=== PATIENT | male | born 1965 | race Caucasian/White ===

== ENCOUNTER → 2017-07-10 | Outpatient (CLI) | payer OTHER ==
[~2017-07-10] MED LIST: ASPIR 8181 MG PO; ASPIRIN325; BACTRIM DS TAB1 EACH PO; CLEOCIN HCL150 MG PO; GLUCOPHAGE500 MG PO; IBUPROFEN 800800 M1 PO; IBUPROFEN 800800 MG PO; KEFLEX500 MG PO; LISINOPRIL10 MG PO; NORCO 5-325 TA1 EACH PO; VITAMINC500 PO
[2017-07-10 12:23] LABS: CREATININE 0.8 mg/dL (0.7-1.3)
== END ==
LOC: CAT 11:52
PROVIDERS: Internal Medicine
DX: R91.8 Other nonspecific abnormal finding of lung field (principal); J98.4 Other disorders of lung

== ENCOUNTER → 2018-02-01 | Outpatient (CLI) | payer OTHER | LOC: CAT 09:18 | DX: R91.1 Solitary pulmonary nodule (principal); R06.00 Dyspnea, unspecified; C61 Malignant neoplasm of prostate ==

== ENCOUNTER → 2018-02-25 | Outpatient (CLI) | payer OTHER | LOC: CAT 09:52 | DX: J84.10 Pulmonary fibrosis, unspecified (principal); R91.1 Solitary pulmonary nodule; N62 Hypertrophy of breast; C61 Malignant neoplasm of prostate ==

== ENCOUNTER → 2018-08-10 | Outpatient (CLI) | payer OTHER | LOC: CAT 09:06 | DX: J98.4 Other disorders of lung (principal); K76.0 Fatty (change of) liver, not elsewhere classified; R91.1 Solitary pulmonary nodule ==

== ENCOUNTER → 2019-08-08 | Outpatient (CLI) | payer OTHER | LOC: CAT 09:04 | PROVIDERS: ATTEND Internal Medicine Pulmonary Disease | DX: R91.8 Other nonspecific abnormal finding of lung field (principal) ==

== ENCOUNTER → 2020-01-23 | Outpatient (CLI) | payer OTHER ==
[2020-01-23 10:55] LABS: ABSOLUTE NEUTROPHILS 4.5 thou/uL (1.4-8.2); BASOPHILS 0.3 % (0.0-2.0); EOSINOPHILS 3.8 % (0.0-3.0); HEMATOCRIT 50.8 % (42.0-52.0); HEMOGLOBIN 17.6 gm/dL (14.0-18.0); LYMPHOCYTES 21.5 % (24.0-44.0); MCH 30.4 pg (26.0-34.0); MCHC 34.7 g/dL (28.0-37.0); MCV 87.7 fL (80.0-100.0); MONOCYTES 8.1 % (1.0-8.0); POLYS 66.3 % (36.0-66.0); RBC 5.79 mil/uL (4.50-6.00); RDW 14.5 % (10.5-14.5); WBC 6.7 thou/uL (4.0-11.0)
[2020-01-23 11:11] LABS: URINE BILIRUBIN NEGATIVE (Negative); URINE BLOOD NEGATIVE (Negative); URINE CLARITY CLEAR; URINE COLOR YELLOW; URINE GLUCOSE-RANDOM* 3+ (Negative); URINE KETONES NEGATIVE (Negative); URINE LEUKOCYTES-REFLEX NEGATIVE (Negative); URINE NITRITE-REFLEX NEGATIVE (Negative); URINE PROTEIN (DIPSTICK) NEGATIVE (Negative); URINE SPECIFIC GRAVITY 1.025 (1.005-1.035); URINE UROBILINOGEN 0.2 E.U./dl (0.2-1.0)
[2020-01-23 11:35] LABS: ALBUMIN 4.4 g/dL (3.4-5.0); ANION GAP 10 mmol/L (7-16); BUN 23 mg/dL (7-18); CALCIUM 8.8 mg/dL (8.5-10.1); CHLORIDE 103 mmol/L (98-107); CHOLESTEROL 106 mg/dL (<200); CO2 24 mmol/L (21-32); CREATININE 0.9 mg/dL (0.7-1.3); GLUCOSE 144 mg/dL (74-106); POTASSIUM 4.3 mmol/L (3.5-5.1); SGOT 19 U/L (15-37); SGPT 42 U/L (30-65); SODIUM 137 mmol/L (136-145); TOTAL BILIRUBIN 1.7 mg/dL (0.2-1.0); TOTAL PROTEIN 7.3 g/dL (6.4-8.2)
[2020-01-23 11:48] LABS: HDL CHOLESTEROL 33 mg/dL (>40); LDL CHOLESTEROL 20 mg/dL (<100); TC:HDL 3.2 Ratio (Not establshd); TRIGLYCERIDE 266 mg/dL (<150); VLDL 53 mg/dL (<40)
[2020-01-23 12:22] LABS: PLATELET COUNT 134 thou/uL (150-400)
== END ==
LOC: LAB 09:24
PROVIDERS: ATTEND Nurse Practitioner
DX: E11.9 Type 2 diabetes mellitus without complications (principal)

== ENCOUNTER → 2020-03-26 | Outpatient (CLI) | payer OTHER | LOC: LAB 12:25 | PROVIDERS: ATTEND Nurse Practitioner | DX: J02.9 Acute pharyngitis, unspecified (principal); R50.9 Fever, unspecified; R05 Cough; Z20.822 Contact with and (suspected) exposure to COVID-19 ==

== ENCOUNTER → 2020-07-31 | Outpatient (CLI) | payer OTHER ==
[2020-07-31 12:13] LABS: URINE BILIRUBIN NEGATIVE (Negative); URINE BLOOD NEGATIVE (Negative); URINE CLARITY CLEAR; URINE COLOR YELLOW; URINE GLUCOSE-RANDOM* 3+ (Negative); URINE KETONES NEGATIVE (Negative); URINE LEUKOCYTES NEGATIVE (Negative); URINE NITRITE NEGATIVE (Negative); URINE PROTEIN (DIPSTICK) NEGATIVE (Negative); URINE SPECIFIC GRAVITY 1.025 (1.005-1.035); URINE UROBILINOGEN 0.2 E.U./dl (0.2-1.0)
[2020-07-31 12:21] LABS: PLATELET COUNT 133 thou/uL (150-400); WBC 5.6 thou/uL (4.0-11.0)
[2020-07-31 12:23] LABS: HEMATOCRIT 50.5 % (42.0-52.0); HEMOGLOBIN 18.2 gm/dL (14.0-18.0); MCH 30.9 pg (26.0-34.0); MCV 85.7 fL (80.0-100.0); RBC 5.89 mil/uL (4.50-6.00)
[2020-07-31 13:04] LABS: ALBUMIN 4.4 g/dL (3.4-5.0); ANION GAP 12 mmol/L (7-16); BUN 18 mg/dL (7-18); CALCIUM 9.1 mg/dL (8.5-10.1); CHLORIDE 103 mmol/L (98-107); CHOLESTEROL 136 mg/dL (<200); CO2 24 mmol/L (21-32); CREATININE 0.8 mg/dL (0.7-1.3); GLUCOSE 241 mg/dL (74-106); HDL CHOLESTEROL 33 mg/dL (>40); LDL CHOLESTEROL 54 mg/dL (<100); POTASSIUM 4.3 mmol/L (3.5-5.1); SGOT 22 U/L (15-37); SGPT 54 U/L (30-65); SODIUM 139 mmol/L (136-145); TC:HDL 4.1 Ratio (Not establshd); TOTAL BILIRUBIN 1.2 mg/dL (0.2-1.0); TOTAL PROTEIN 7.1 g/dL (6.4-8.2); TRIGLYCERIDE 247 mg/dL (<150); VLDL 49 mg/dL (<40)
[2020-07-31 13:17] LABS: ABSOLUTE NEUTROPHILS 3.7 thou/uL (1.4-8.2)
[2020-08-01 02:06] LABS: GLYCOHEMOGLOBIN (HGB A1C) 8.8 % (4.8-5.6)
== END ==
LOC: LAB 10:43
PROVIDERS: ATTEND Nurse Practitioner
DX: E11.9 Type 2 diabetes mellitus without complications (principal)

== ENCOUNTER → 2020-09-21 | Outpatient (CLI) | payer OTHER ==
[~2020-09-21] VITALS: Ht 170.2 cm; Wt 83.9 kg
[~2020-09-21] MED LIST changes: -ASPIR 8181 MG PO; +CHILDREN'S ASPI81 M1 PO; +FARXIGA10 MG PO; +GLUCOPHAGE XR750 MG PO; +LISINOPRIL5 MG PO; +ROSUVASTATIN CA20 MG PO; +TRULICITY1.5 MG/0.5 SUBQ
--- NOTE | ~2020-09-21 | P ---
[facility] [place] [address] PROCEDURE REPORT Name: DIONNE ACOSTA Room #: REG Stacy GonzalezRicky#: [id number] Admission: 09/21/20 Attend Phys: Julian Freitas Discharge: Date of : 61 Report #: [id number] THIS REPORT FOR: cc: Brandon Wylie James A. DO McElhinney, Christian C. MD ~ cc: Brandon Wylie DO DATE OF SERVICE: 09/21/2020 PROCEDURE PERFORMED: Colonoscopy with biopsies. HISTORY OF PRESENT ILLNESS: The patient is a 54-year-old male, who underwent an upper endoscopy by myself just now for excessive belching hiccups. Plan is for screening colonoscopy. Last colonoscopy 10 years ago. No family history of colon cancer. DESCRIPTION OF PROCEDURE: The risks and benefits of the procedure were explained to the patient, those risks including but not limited to bleeding, perforation, and the risk of sedation. He understood these risks and gave me informed consent. Sedation was given using propofol per anesthesia. Next, a digital rectal exam was initially performed, which was normal. Next, using a standard Olympus colonoscope, the scope was placed in the patient's anus and advanced under direct vision to the cecum. The overall prep was good. The cecum and ileocecal valve were normal in appearance. In the ascending colon, a 5 mm sessile polyp was noted. This was removed with cold forceps. Multiple diverticula were noted in the ascending colon as well. In the transverse colon, diverticulosis also noted as well as a 4 mm sessile polyp, also removed with cold forceps. Diverticulosis noted in the descending and sigmoid colon, otherwise normal. The rectal mucosa was normal. On retroflexion, no abnormalities were noted. The scope was then withdrawn and the procedure terminated. The patient tolerated the procedure well. IMPRESSION: 1. Pandiverticulosis. 2. Two small colonic polyps. 3. Otherwise, normal colonoscopy. RECOMMENDATIONS: 1. Await biopsy results. 2. If polyps are hyperplastic, repeat in 10 years; if adenomatous polyp, repeat in [address] [address] PROCEDURE REPORT Name: DIONNE ACOTSA Room #: REG Stacy Bowser#: [id number] Admission: 09/21/20 Attend Phys: Julian Freitas Discharge: Date of : 61 Report #: [id number] Thank you for allowing me to participate in his care. By: 1211 49 Julian Ellington MD /nt
--- NOTE | ~2020-09-21 | P ---
[facility] [place] [address] PROCEDURE REPORT Name: DIONNE ACOSTA Room #: REG AMANStacy Bowser#: [id number] Admission: 09/21/20 Attend Phys: Julian Freitas Discharge: Date of : 61 Report #: [id number] THIS REPORT FOR: cc: Brandon Wylie James A. DO McElhinney, Christian C. MD ~ cc: Brandon Wylie DO DATE OF SERVICE: 09/21/2020 PROCEDURE PERFORMED: Upper endoscopy with biopsies. HISTORY OF PRESENT ILLNESS: The patient is a 54-year-old male who was seen by myself in the office on 09/13/2020. He complains of excessive belching and hiccups, became worse in April of this year. No previous history of upper endoscopy. Last colonoscopy was 10 years ago. The patient denies any nausea, vomiting or dysphagia. He does report early satiety. Primary physician recently started the patient on Reglan, which has been mildly helpful. He does report mild heartburn at times. We started him on Prilosec at the time of the office visit. He now reports some mild improvement in his symptoms as well. Plan is for EGD and colonoscopy today. DESCRIPTION OF PROCEDURE: The risks and benefits of the procedure were explained to the patient, those risks including but not limited to bleeding, perforation and the risk of sedation. He understood these risks and gave informed consent. Sedation was given using propofol per anesthesia. Next, using a standard Olympus upper endoscope, the scope was placed in the patient's mouth and advanced under direct vision through the esophagus, stomach and into the second portion of the duodenum. The larynx was normal in appearance. The upper and mid esophagus was normal. In the distal esophagus, a possible short segment of Wu's esophagus was noted. Biopsies obtained. No evidence of esophagitis. Overall, the gastric mucosa was normal in the fundus and the body. There was a mild gastritis noted in the gastric antrum with a few small erosions. Biopsies were obtained to rule out H. pylori. The pylorus was normal and patent. The duodenal bulb, first and second portion were all normal. Biopsies were obtained to rule out the possibility of celiac sprue. The scope was then withdrawn and the procedure terminated. The patient tolerated the procedure well. IMPRESSION: 1. Possible short segment Wu's. 2. Mild gastritis with small erosions. 3. Otherwise, normal upper endoscopy. RECOMMENDATIONS: 1. Await biopsies. [address] [address] PROCEDURE REPORT Name: DIONNE ACOSTA Room #: REG BJ Bowser#: [id number] Admission: 09/21/20 Attend Phys: Julian Freitas Discharge: Date of : 61 Report #: [id number] 2. Continue PPI therapy for longer term to see if added benefit over time. 3. We will proceed with colonoscopy next today. Thank you for allowing me to participate in his care. By: 1209 2046 Julian Ellington MD /nt
--- NOTE | 2020-09-25 11:07 | PATH ---
[facility] [address] [address] PATHOLOGY RPT PROCEDURE Name: ACOSTAJOEL WOODY Room #: REG BJ Bowser#: [id number] Admission: 09/21/20 Date of : 61 Discharge: Report #: [id number] Path Case #: [id number] [facility] Accession Number: [id number] . 01 Material submitted: . PART A: duodenum - DUODENAL BIOPSY R/O SPRUE PART B: gastrointestinal site - GASTRITIS PART C: esophagus - DISTAL ESOPHAGUS R/O REDMOND'S. Modifiers: distal PART D: gastrointestinal site - GASTRIC POLYPS PART E: colon - ASCENDING COLON POLYP. Modifiers: ascending PART F: colon - TRANSVERSE COLON POLYP. Modifiers: transverse . 01 Clinical history: . EGD/COLONOSCOPY/EPIGASTRIC PAIN/SCREENING . 02 Diagnosis: A. Small bowel mucosa, duodenum R/O sprue, endoscopic biopsy: - No diagnostic abnormalities present. - Negative for villous blunting or increase in intraepithelial lymphocytes. . B. Gastric mucosa, gastritis, endoscopic biopsy: - Mild chronic inflammation. - Negative for intestinal metaplasia or atrophy. - Negative for Helicobacter pylori (properly controlled immunohistochemical stain performed). . C. Gastric fundic-type mucosa, distal esophagus R/O Redmond's, endoscopic biopsy: - Negative for intestinal metaplasia. - Mild chronic inflammation. . D. Polyps, gastric polyps, endoscopic biopsy: - Dilated fundic glands, compatible with fundic gland polyps. - Negative for dysplasia or malignancy. . E. Polyp, ascending colon polyp, endoscopic biopsy: - Tubular adenoma. - Negative for high-grade dysplasia. . F. Polyp, transverse colon polyp, endoscopic biopsy: - Tubular adenoma. - Negative for high-grade dysplasia. ([facility]; 09/24/2020) S 09/24/2020 1711 Local . 02 Electronically signed: . [address] [address] PATHOLOGY RPT PROCEDURE Name: JOEL ACOSTA Room #: REG CLI Mague#: [id number] Admission: 09/21/20 Date of : 61 Discharge: Report #: [id number] Path Case #: [id number] Majo Gore MD, Pathologist NPI- [id number] . 01 Gross description: . A. The specimen is received in formalin, labeled "Joel Acosta duodenal biopsy". Received are four segments of pale bennett tissue ranging in size 0.3-0.5 cm in maximum dimensions. The specimen is submitted entirely in cassette A1. . B. The specimen is received in formalin, labeled "Edward Acosta, gastritis". Received are four segments of pale bennett tissue ranging in size from 0.3-0.4 cm in maximum dimensions. The specimen is submitted entirely in cassette B1. . C. The specimen is received in formalin, labeled "Edward Acosta, distal esophagus". Received are two segments of pale bennett tissue measuring 0.3 and 0.4 cm in maximum dimensions. The specimen is submitted entirely in cassette C1. . D. The specimen is received in formalin, labeled "Edward Acosta, gastric polyps". Received are two segments of pale bennett tissue measuring 0.5 and 0.7 cm in maximum dimensions. The specimen is submitted entirely in cassette D1. . E. The specimen is received in formalin, labeled "Edward Acosta, ascending colon polyp". Received are three segments of pale bennett tissue ranging in size from 0.2-0.3 cm in maximum dimensions. The specimen is submitted entirely in cassette E1. . F. The specimen is received in formalin, labeled "Edward Acosta, transverse colon polyp". Received is a segment of pale bennett tissue measuring 0.4 cm in maximum dimensions. The specimen is submitted entirely in cassette F1. ([facility]; 09/22/2020) QA/QAC 09/22/2020 1740 Local . 02 Pathologist provided ICD-10: K29.50, K20.90, D12.2, D12.3, R10.13 . 02 CPT . 524421, 052331, 877277, 424063, 182451, 437500, G21710 Specimen Comment: A courtesy copy of this report has been sent to [phone] Specimen Comment: [id number] Specimen Comment: Report sent to / DR TIMMONS Performed at: [address], [place], [place] [id number] [address] [address] PATHOLOGY RPT PROCEDURE Name: JOEL ACOSTA Room #: REG CLI M.R.#: [id number] Admission: 09/21/20 Date of : 61 Discharge: Report #: [id number] Path Case #: [id number] MD Ian Sahu MD Phone: [phone] Performed at: [address] [id number] MD Majo Gore MD Phone: [phone]
== END | disposition home or self-care (01) ==
LOC: GI 10:18
PROVIDERS: ATTEND Specialist
DX: Z12.11 Encounter for screening for malignant neoplasm of colon (principal); D12.2 Benign neoplasm of ascending colon; D12.3 Benign neoplasm of transverse colon; K57.30 Diverticulosis of large intestine without perforation or abscess without bleeding; K29.50 Unspecified chronic gastritis without bleeding; K21.00 Gastro-esophageal reflux disease with esophagitis, without bleeding; K31.7 Polyp of stomach and duodenum; R14.2 Eructation; R10.13 Epigastric pain; I10 Essential (primary) hypertension; E11.9 Type 2 diabetes mellitus without complications; G47.30 Sleep apnea, unspecified; E78.00 Pure hypercholesterolemia, unspecified; Z98.890 Other specified postprocedural states; Z79.899 Other long term (current) drug therapy; Z85.46 Personal history of malignant neoplasm of prostate
CPT/HCPCS: 62110; 62900

== ENCOUNTER → 2020-11-22 | Outpatient (CLI) | payer OTHER | LOC: LAB 07:31 | PROVIDERS: ATTEND Nurse Practitioner | DX: E11.9 Type 2 diabetes mellitus without complications (principal) ==

== ENCOUNTER → 2021-03-27 | Outpatient (CLI) | payer OTHER | LOC: RAD 07:54 | PROVIDERS: ATTEND Nurse Practitioner | DX: J84.10 Pulmonary fibrosis, unspecified (principal) ==